=== PATIENT | female | born 1950 | race Caucasian/White ===

== ENCOUNTER → 2017-03-06 | Outpatient (CLI) | payer MEDICARE, OTHER ==
[~2017-03-06] MED LIST: FERR325T10 PO; FLUO10CA13 PO; L. R1CAP PO; LEVO175T5 PO; LEVO75TA PO; LISI5TAB7 PO; OMEP20TA62 PO; OXYC1TAB9 PO; VENL150T PO
== END | disposition home or self-care (01) ==
LOC: STAR 11:00
PROVIDERS: ATTEND Plastic Surgery
DX: Z02.9 Encounter for administrative examinations, unspecified (principal)

== ENCOUNTER 2017-03-09 06:52 | Day surgery (SDC) | payer MEDICARE, OTHER ==
[2017-03-06 11:46] VITALS: BP 151/92
[~2017-03-09] VITALS: Ht 160 cm; Wt 115.0 kg
[2017-03-09] MEDS ORDERED: LACTATED RINGERS 1,000 ML IV SCH (07:56)
[2017-03-09] MEDS ORDERED: LIDOCAINE 1%, 2ML SQ PRN (08:00)
[2017-03-09 08:03] VITALS: BP 151/92
[2017-03-09] MEDS ORDERED: ACETAMINOPHEN 500 MG TABLET ONE (08:30)
[2017-03-09] MEDS ORDERED: SCOPOLAMINE PATCH, 1.5MG PATCH.TD72 TD ONE ×2 (08:30→09:00)
[2017-03-09] MEDS ORDERED: ACETAMINOPHEN 500 MG TABLET PO ONE (09:00)
[2017-03-09] MEDS ORDERED: OXYcodone IR 5MG TABLET PO ONE (09:00)
[2017-03-09] MEDS ORDERED: BUPIVACAINE/PF-EPI 0.25% 1:200K ONE (09:03)
[2017-03-09] MEDS ORDERED: CLINDAMYCIN 150 MG/ML, 6ML ONE (09:03)
[2017-03-09] MEDS ORDERED: AMPICILLIN 1 GM ONE (09:03)
[2017-03-09] MEDS ORDERED: LIDOCAINE-MPF 2% ,5ML ONE (09:03)
[2017-03-09] MEDS ORDERED: DEXMEDETOMIDINE 200 MCG/2 ML ONE ×2 (09:05→09:20)
[2017-03-09] MEDS ORDERED: KETAMINE 10 MG/ML, 20ML ONE ×2 (09:06→09:20)
[2017-03-09] MEDS ORDERED: MIDAZOLAM 1 MG/ML, 2ML ONE (09:06)
[2017-03-09] MEDS ORDERED: FENTANYL PF 250 MCG/5ML ONE (09:06)
[2017-03-09] MEDS ORDERED: ONDANSETRON 2MG/ML, 2ML ONE (09:20)
[2017-03-09] MEDS ORDERED: PHENYLEPHRINE 10 MG/ML ONE (09:20)
[2017-03-09] MEDS ORDERED: METOCLOPRAMIDE 5 MG/ML, 2ML ONE (09:20)
[2017-03-09] MEDS ORDERED: KETOROLAC 30 MG/1 ML ONE (09:20)
[2017-03-09] MEDS ORDERED: DEXAMETHASONE 4 MG/ML, 1ML ONE (09:20)
[2017-03-09] MEDS ORDERED: PROPOFOL 10 MG/ML, 20ML ONE (09:20)
[2017-03-09] MEDS ORDERED: GLYCOPYRROLATE 0.2MG/1ML ONE (09:20)
[2017-03-09] MEDS ORDERED: LABETALOL 20 MG/4 ML ONE (09:20)
[2017-03-09 09:44] LABS: ASPARTATE AMINO TRANSFERASE 17 U/L (15-37); BLOOD UREA NITROGEN 27 mg/dL (7-18)
[2017-03-09] MEDS ORDERED: FENTANYL PF 100 MCG/2ML ONE (11:44)
[2017-03-09] MEDS ORDERED: OXYcodone 5 MG/5 ML ORAL.SOL UDC ONE (11:44)
[2017-03-09] MEDS ORDERED: HYDROmorphone 1 MG/ML, 1ML IV PRN (12:30)
[2017-03-09] MEDS ORDERED: hydrALAzine 20 MG/ML, 1ML IV PRN (12:30)
[2017-03-09] MEDS ORDERED: LABETALOL 5MG/ML, 20ML IV PRN (12:30)
[2017-03-09] MEDS ORDERED: METOPROLOL 1 MG/ML, 5ML IV PRN (12:30)
[2017-03-09] MEDS ORDERED: EPHEDRINE 50 MG/ML, 1ML IVPush PRN (12:30)
[2017-03-09] MEDS ORDERED: ONDANSETRON 2MG/ML, 2ML IVPush PRN (12:30)
[2017-03-09] MEDS ORDERED: FENTANYL PF 100 MCG/2ML IV PRN (12:30)
[2017-03-09] MEDS ORDERED: OXYcodone 5 MG/5 ML ORAL.SOL UDC PO PRN (12:30)
[2017-03-09] MEDS ORDERED: PROMETHAZINE 25 MG/ML, 1ML IV PRN (12:30)
[2017-03-09] MEDS ORDERED: OXYcodone/APAP 7.5/325MG TABLET PO PRN (15:30)
[2017-03-09] MEDS ORDERED: OXYcodone/APAP 7.5/325MG TABLET ONE (15:31)
== END 2017-03-09 15:50 | disposition home or self-care (01) ==
LOC: OUT 06:52
PROVIDERS: ATTEND Plastic Surgery
DX: N62 Hypertrophy of breast (principal); Z98.1 Arthrodesis status; E03.9 Hypothyroidism, unspecified
CPT/HCPCS: 19318; 36415; 80053; 88305; J0290; J1100; J1885; J2250; J2370; J2405; J2704; J2765; J3010; J3490; J7120

== ENCOUNTER 2019-09-12 10:28 | Inpatient (IN) | payer MEDICARE, OTHER ==
[~2019-09-12] VITALS: Ht 157.5 cm; Wt 113.3 kg
[~2019-09-12 10:28] MED LIST changes: +FERR-51 PO; -FERR325T10 PO; -L. R1CAP PO; +LACT1CAP61 PO; +OXYC-432 PO; -OXYC1TAB9 PO
[2019-09-12] MEDS ORDERED: LISI1TAB23 PO (10:52)
[2019-09-12] MEDS ORDERED: CHOL500045 PO (10:52)
[2019-09-12] MEDS ORDERED: Allertec PO (10:52)
--- NOTE | 2019-09-12 10:53 | NUR ---
LATE NOTE DUE TO PT CARE. Pt ambulates with steady gait and balance from triage to ED room. Pt c/o, "I was sent by [facility] for a Hida scan because they think I have a bad gallbladder. For a while now I have had pain on my right sided here (RUQ), gas, and belching." NADN. Pt resting on gurney in [facility]. cardiothoracic anesthesia technician performing EKG at bedside. No needs requested at this time. Pt denies cp, sob, syncope, or trauma.
--- NOTE | 2019-09-12 11:07 | NUR ---
Pt ambulates with steady gait and balance to restroom. UA cup provided. Pt "missed the cup" and did not collect any urine. Pt aware of need of UA and will try again "soon." Pt ambulates back to room with steady gait and balance. Pt refusing to sit on gurney or be connected to monitors. Pt requests to sit in chair at bedside. Call light within reach. NADN. No other needs expressed at this time.
[2019-09-12 11:11] LABS: BASOPHILS # (AUTO) 0.06 x10^3/uL (0-0.1); BASOPHILS % (AUTO) 1 % (0-1); EOSINOPHILS # (AUTO) 0.25 x10^3/uL (0-0.4); EOSINOPHILS % (AUTO) 3 % (1-7); LYMPHOCYTES # (AUTO) 1.32 x10^3/uL (1-3.4); LYMPHOCYTES % (AUTO) 15 % (22-44); MD NO; MEAN CORPUSCULAR HEMOGLOBIN 29.8 pg (27.0-34.8); MEAN CORPUSCULAR VOLUME 92.9 fL (80-100); MEAN PLATELET VOLUME 11.2 fL (7.4-10.4); MONOCYTES # (AUTO) 0.77 x10^3/uL (0.2-0.8); MONOCYTES % (AUTO) 8 % (2-9); NEUTROPHILS # (AUTO) 6.76 x10^3/uL (1.8-6.8); NEUTROPHILS % (AUTO) 74 % (42-75); PLATELET COUNT 189 x10^3/uL (130-400); RED CELL DISTRIBUTION WIDTH 14.9 % (9.6-15.2)
[2019-09-12 11:19] LABS: ALANINE AMINOTRANSFERASE 34 U/L (12-78); ALBUMIN 3.5 g/dL (3.4-5.0); ANION GAP 7 mmol/L (5-15); CHLORIDE 108 mmol/L (98-107); CREATININE 1.12 mg/dL (0.55-1.02)
[2019-09-12 11:22] LABS: ALKALINE PHOSPHATASE 113 U/L (45-117); BILIRUBIN,TOTAL 0.7 mg/dL (0.2-1.0); TOTAL PROTEIN 7.3 g/dL (6.4-8.2)
[2019-09-12] MEDS ORDERED: PROMETHAZINE 25 MG/ML, 1ML IM ONE (12:00)
--- NOTE | 2019-09-12 12:00 | NUR ---
RECEIVED REPORT FORM JAQUELIN. ASSUMING CARE AT THIS TIME.
[2019-09-12] MEDS ORDERED: PROMETHAZINE 25 MG/ML, 1ML ONE (12:18)
--- NOTE | 2019-09-12 12:20 | NUR ---
PT REFUSED PROMETHIAZINE, STATES SHE IS NOT NAUSEATED.
--- NOTE | 2019-09-12 13:21 | NUR ---
PT AMBULATED TO RESTROOM WITH STEADY GAIT AND PROVIDED URINE SAMPLE. UA COLLECTED AND SENT TO LAB.
[2019-09-12 13:42] LABS: MICROSCOPIC NOT IND
[2019-09-12 13:52] LABS: CULTURE INDICATED? NO
--- NOTE | 2019-09-12 14:00 | NUR ---
MD NOTIFIED ALL RESULTS BACK, EXCEPT UA.
--- NOTE | 2019-09-12 14:10 | NUR ---
MD AT BEDSIDE TO UPDATE PT ON POC.
[2019-09-12] MEDS ORDERED: OMNIPAQUE 350 MG/ML, 100ML BOTTLE ONE (15:12)
--- NOTE | 2019-09-12 15:30 | NUR ---
HOSPITALIST AT BEDSIDE.
[2019-09-12] MEDS: NS + 20MEQ KCL 1,000 ML IV SCH ×2 (15:36→18:38)
--- NOTE | 2019-09-12 15:46 | NUR ---
HOSPITAL BED BROUGHT TO PT ROOM FOR [employer] HOLD.
[2019-09-12] MEDS ORDERED: LORazepam 2 MG/ML, 1ML IVPush ONE ×2 (16:00→18:00)
[2019-09-12] MEDS ORDERED: PROMETHAZINE 25 MG/ML, 1ML IM PRN (16:00)
[2019-09-12] MEDS ORDERED: hydrALAzine 20 MG/ML, 1ML IVPush PRN (16:00)
[2019-09-12] MEDS ORDERED: ACETAMINOPHEN 325 MG TABLET PO PRN (16:00)
[2019-09-12] MEDS ORDERED: ONDANSETRON ODT 4 MG PO PRN (16:00)
[2019-09-12] MEDS ORDERED: morphine SULFATE 10 MG/ML, 1ML IVPush PRN (16:00)
[2019-09-12] MEDS ORDERED: ONDANSETRON 2MG/ML, 2ML IVPush PRN (16:00)
[2019-09-12 16:02] LABS: INTERNATIONAL NORMALIZED RATIO 0.92 (0.93-1.1); PROTHROMBIN TIME 9.7 Seconds (9.6-11.5)
[2019-09-12] MEDS ORDERED: NS + 20MEQ KCL 1,000 ML IV ONE (16:04)
[2019-09-12] MEDS ORDERED: PANTOPRAZOLE 40 MG IV ONE (16:04)
[2019-09-12] MEDS ORDERED: LORazepam 2 MG/ML, 1ML ONE (16:05)
[2019-09-12] MEDS: PANTOPRAZOLE 40 MG IV IVPush SCH ×2 (16:10→20:34)
--- NOTE | 2019-09-12 16:12 | NUR ---
MEDS ADMINSITERED PER JAN. PT TAKEN TO [facility].
--- NOTE | 2019-09-12 17:10 | NUR ---
REPORT GIVEN TO CHIKIS JONES
[2019-09-12 18:14] VITALS: BP 131/76
[2019-09-12 19:26] VITALS: BP 150/83
[2019-09-12] MEDS: OXYcodone IR 5MG TABLET PO PRN (20:30)
[2019-09-13 01:05] VITALS: BP 135/75
[2019-09-13] MEDS: OXYcodone IR 5MG TABLET PO PRN ×4 (02:55→22:15)
[2019-09-13] MEDS: NS + 20MEQ KCL 1,000 ML IV SCH ×2 (05:12→14:58)
[2019-09-13 08:20] VITALS: BP_SYST 132; BP_SYST 138; BP_DIAS 78; BP_DIAS 83
[2019-09-13] MEDS: LEVOTHYROXINE 175 MCG TABLET PO SCH (10:19)
[2019-09-13] MEDS: PANTOPRAZOLE 40 MG IV IVPush SCH ×2 (10:19→20:31)
[2019-09-13] MEDS: VENLAFAXINE 75 MG CAP ER PO SCH (10:20)
[2019-09-13 10:38] LABS: BASOPHILS # (AUTO) 0.04 x10^3/uL (0-0.1); BASOPHILS % (AUTO) 1 % (0-1); EOSINOPHILS # (AUTO) 0.13 x10^3/uL (0-0.4); EOSINOPHILS % (AUTO) 2 % (1-7); LYMPHOCYTES # (AUTO) 1.15 x10^3/uL (1-3.4); LYMPHOCYTES % (AUTO) 14 % (22-44); MD NO; MEAN CORPUSCULAR HEMOGLOBIN 30.7 pg (27.0-34.8); MEAN CORPUSCULAR HGB CONC 32.4 g/dL (32.4-35.8); MEAN CORPUSCULAR VOLUME 94.7 fL (80-100); MONOCYTES # (AUTO) 0.84 x10^3/uL (0.2-0.8); MONOCYTES % (AUTO) 10 % (2-9); NEUTROPHILS # (AUTO) 6.36 x10^3/uL (1.8-6.8); NEUTROPHILS % (AUTO) 75 % (42-75); PLATELET COUNT 174 x10^3/uL (130-400); RED BLOOD COUNT 3.37 x10^6/uL (3.82-5.3); RED CELL DISTRIBUTION WIDTH 15.4 % (9.6-15.2)
[2019-09-13 10:44] LABS: ALANINE AMINOTRANSFERASE 15 U/L (12-78); ANION GAP 6 mmol/L (5-15); CALCIUM 8.5 mg/dL (8.5-10.1); CHLORIDE 108 mmol/L (98-107); CREATININE 1.05 mg/dL (0.55-1.02)
[2019-09-13 10:46] LABS: ALKALINE PHOSPHATASE 102 U/L (45-117); BILIRUBIN,TOTAL 0.8 mg/dL (0.2-1.0); TOTAL PROTEIN 6.6 g/dL (6.4-8.2)
[2019-09-13 13:40] VITALS: BP 147/66
[2019-09-13 13:45] VITALS: BP 150/89
[2019-09-13 20:14] VITALS: BP 130/76
[2019-09-14] MEDS: NS + 20MEQ KCL 1,000 ML IV SCH ×2 (01:13→16:16)
[2019-09-14 02:11] VITALS: BP 136/70
[2019-09-14] MEDS: OXYcodone IR 5MG TABLET PO PRN ×2 (05:57→17:26)
[2019-09-14] MEDS: PANTOPRAZOLE 40 MG IV IVPush SCH ×2 (08:08→20:44)
[2019-09-14] MEDS: LEVOTHYROXINE 175 MCG TABLET PO SCH (08:08)
[2019-09-14] MEDS: VENLAFAXINE 75 MG CAP ER PO SCH (08:08)
[2019-09-14] MEDS ORDERED: POLYETHYLENE GLYCOL 17 GM PACKET PO PRN (08:30)
[2019-09-14 09:09] VITALS: BP 179/90
[2019-09-14 10:30] LABS: BASOPHILS # (AUTO) 0.04 x10^3/uL (0-0.1); BASOPHILS % (AUTO) 1 % (0-1); EOSINOPHILS # (AUTO) 0.21 x10^3/uL (0-0.4); EOSINOPHILS % (AUTO) 2 % (1-7); LYMPHOCYTES # (AUTO) 1.03 x10^3/uL (1-3.4); LYMPHOCYTES % (AUTO) 12 % (22-44); MD NO; MEAN CORPUSCULAR HEMOGLOBIN 30.5 pg (27.0-34.8); MEAN CORPUSCULAR HGB CONC 32.4 g/dL (32.4-35.8); MEAN CORPUSCULAR VOLUME 94.2 fL (80-100); MEAN PLATELET VOLUME 11.5 fL (7.4-10.4); MONOCYTES # (AUTO) 0.82 x10^3/uL (0.2-0.8); MONOCYTES % (AUTO) 10 % (2-9); NEUTROPHILS # (AUTO) 6.55 x10^3/uL (1.8-6.8); NEUTROPHILS % (AUTO) 76 % (42-75); PLATELET COUNT 202 x10^3/uL (130-400); RED BLOOD COUNT 3.64 x10^6/uL (3.82-5.3); RED CELL DISTRIBUTION WIDTH 14.9 % (9.6-15.2)
[2019-09-14] MEDS ORDERED: HYDROCHLOROTHIAZIDE 12.5 MG CAPSULE PO ONE (10:30)
[2019-09-14 10:39] LABS: ALANINE AMINOTRANSFERASE 19 U/L (12-78); ALBUMIN 3.2 g/dL (3.4-5.0); ANION GAP 8 mmol/L (5-15); CALCIUM 8.5 mg/dL (8.5-10.1); CHLORIDE 110 mmol/L (98-107); CREATININE 1.12 mg/dL (0.55-1.02)
[2019-09-14 10:41] LABS: ALKALINE PHOSPHATASE 119 U/L (45-117); BILIRUBIN,TOTAL 0.9 mg/dL (0.2-1.0); TOTAL PROTEIN 7.3 g/dL (6.4-8.2)
[2019-09-14 11:18] VITALS: BP 153/81
[2019-09-14 12:35] VITALS: BP 118/75
[2019-09-14] MEDS ORDERED: PIPERACILLIN/TAZO/PMX 3.375GM 50 ML ONE (13:08)
[2019-09-14] MEDS ORDERED: CHLORHEXIDINE 15 ML UDC ONE (13:09)
[2019-09-14] MEDS ORDERED: LIDOCAINE-MPF 2% ,5ML ONE (13:45)
[2019-09-14] MEDS ORDERED: PROPOFOL 10 MG/ML, 50ML ONE (13:45)
[2019-09-14] MEDS ORDERED: PROMETHAZINE 25 MG/ML, 1ML IV PRN ×2 (14:00→14:30)
[2019-09-14] MEDS ORDERED: OXYcodone 5 MG/5 ML ORAL.SOL UDC PO PRN ×2 (14:00→14:30)
[2019-09-14] MEDS ORDERED: hydrALAzine 20 MG/ML, 1ML IV PRN ×2 (14:00→14:30)
[2019-09-14] MEDS ORDERED: FENTANYL PF 100 MCG/2ML IV PRN ×2 (14:00→14:30)
[2019-09-14] MEDS ORDERED: HALOPERIDOL 5 MG/ML IV PRN ×2 (14:00→14:30)
[2019-09-14] MEDS ORDERED: MEPERIDINE/PF 25MG/ML,1ML IVPush PRN ×2 (14:00→14:30)
[2019-09-14] MEDS ORDERED: ACETAMINOPHEN 325 MG TABLET PO PRN ×2 (14:00→14:30)
[2019-09-14] MEDS ORDERED: HYDROmorphone 2 MG/ML, 1ML IVPush PRN ×2 (14:00→14:30)
[2019-09-14] MEDS ORDERED: FENTANYL PF 100 MCG/2ML ONE (14:05)
[2019-09-14] MEDS ORDERED: HYDROCHLOROTHIAZIDE 12.5 MG CAPSULE ONE (16:09)
[2019-09-14] MEDS: SENNA/DOCUSATE TABLET PO SCH ×2 (16:20→20:44)
[2019-09-14] MEDS: LISINOPRIL 10 MG TABLET PO SCH (16:22)
[2019-09-14 19:58] VITALS: BP 126/75
[2019-09-15] MEDS: NS + 20MEQ KCL 1,000 ML IV SCH (02:21)
[2019-09-15 03:10] VITALS: BP 117/74
[2019-09-15] MEDS: LEVOTHYROXINE 175 MCG TABLET PO SCH (07:22)
[2019-09-15] MEDS: OXYcodone IR 5MG TABLET PO PRN (07:25)
[2019-09-15 07:40] VITALS: BP 145/71
[2019-09-15] MEDS: PANTOPRAZOLE 40 MG IV IVPush SCH (08:54)
[2019-09-15] MEDS: SENNA/DOCUSATE TABLET PO SCH (08:59)
[2019-09-15] MEDS: VENLAFAXINE 75 MG CAP ER PO SCH (08:59)
[2019-09-15] MEDS: LISINOPRIL 10 MG TABLET PO SCH (08:59)
[2019-09-15] MEDS ORDERED: FLU VAC QS 19-20(4YR UP)CEL/PF 0.5 ML IM-VACC ONE (09:30)
== END 2019-09-15 12:05 | disposition home or self-care (01) | DRG 394 ==
LOC: ED 14:59 → EDIP 15:00 → ED 15:04 → 4WST 17:46 → DCLOUNGE 09-15 11:55
PROVIDERS: ADMIT Internal Medicine; ATTEND Family Medicine
PROC: 0DB68ZX Excision of Stomach, Via Natural or Artificial Opening Endoscopic, Diagnostic (ICD-10-PCS; 2019-09-14)
PROC: BD47ZZZ Ultrasonography of Gastrointestinal Tract (ICD-10-PCS; 2019-09-14)
PROC: 0DB98ZX Excision of Duodenum, Via Natural or Artificial Opening Endoscopic, Diagnostic (ICD-10-PCS; principal; 2019-09-14 13:00)
DX: K66.1 Hemoperitoneum (principal); F11.20 Opioid dependence, uncomplicated; Z68.42 Body mass index [BMI] 45.0-49.9, adult; N17.9 Acute kidney failure, unspecified; I10 Essential (primary) hypertension; E66.01 Morbid (severe) obesity due to excess calories; K21.9 Gastro-esophageal reflux disease without esophagitis; E03.9 Hypothyroidism, unspecified; Z88.8 Allergy status to other drugs, medicaments and biological substances; Z91.048 Other nonmedicinal substance allergy status; K86.89 Other specified diseases of pancreas; D64.9 Anemia, unspecified; F32.9 Major depressive disorder, single episode, unspecified; G47.33 Obstructive sleep apnea (adult) (pediatric); G89.4 Chronic pain syndrome; K29.70 Gastritis, unspecified, without bleeding; K44.9 Diaphragmatic hernia without obstruction or gangrene; Z82.49 Family history of ischemic heart disease and other diseases of the circulatory system; Z86.73 Personal history of transient ischemic attack (TIA), and cerebral infarction without residual deficits; Z90.710 Acquired absence of both cervix and uterus; Z96.653 Presence of artificial knee joint, bilateral; Z98.1 Arthrodesis status; Z98.84 Bariatric surgery status
CPT/HCPCS: 36415; 74174; 74177; 74183; 80053; 81003; 83690; 85014; 85018; 85025; 85610; 85730; 86301; 88305; 90674; 93005; 94660; 99285; G0378; J2543; J2704; J3010; J3480; Q9967; C9113; J0360; J2060